=== PATIENT | female | born 1995 | race Caucasian/White ===

== ENCOUNTER 2019-07-07 19:32 | Emergency (ER) | payer BC ==
[~2019-07-07] VITALS: Ht 177.8 cm; Wt 86.0 kg
[2019-07-07 20:14] LABS: BASOPHILS # (AUTO) 0.1 X10'3 (0-0.2); BASOPHILS % (AUTO) 0.6 % (0-1); EOSINOPHILS # (AUTO) 0.1 X10'3 (0-0.9); EOSINOPHILS % (AUTO) 1.1 % (0-6); HEMATOCRIT 36.6 % (35.0-45.0); HEMOGLOBIN 12.9 g/dl (12.0-16.0); LYMPHOCYTES # (AUTO) 1.7 X10'3 (1.1-4.8); LYMPHOCYTES % (AUTO) 20.8 % (21-51); MEAN CORPUSCULAR HEMOGLOBIN 30.5 PG (27.0-31.0); MEAN CORPUSCULAR HGB CONC 35.1 g/dL (33.0-36.5); MEAN CORPUSCULAR VOLUME 86.8 FL (78-98); MEAN PLATELET VOLUME 7.9 FL (7.4-10.4); MONOCYTES # (AUTO) 0.6 X10'3 (0-0.9); MONOCYTES % (AUTO) 7.8 % (2-12); NEUTROPHILS # (AUTO) 5.7 X10'3 (1.8-7.7); NEUTROPHILS % (AUTO) 69.7 % (42-75); PLATELET COUNT 257 X10'3 (140-440); RED BLOOD COUNT 4.22 X10'6 (4.20-5.60); RED CELL DISTRIBUTION WIDTH 12.1 % (11.5-14.5); WHITE BLOOD COUNT 8.2 X10'3 (4.5-11.0)
[2019-07-07 20:29] LABS: ALANINE AMINOTRANSFERASE 88 U/L (12-78); ALBUMIN/GLOBULIN RATIO 1.2 (1.1-1.5); ALKALINE PHOSPHATASE 63 IU/L (46-116); ANION GAP 9 (8-16); ASPARTATE AMINO TRANSFERASE 27 U/L (10-37); BILIRUBIN,TOTAL 0.1 MG/DL (0.1-1.0); BLOOD UREA NITROGEN 16 MG/DL (7-18); CALCIUM 9.2 MG/DL (8.5-10.1); CHLORIDE 106 MMOL/L (99-107); CREATININE 0.84 MG/DL (0.40-0.90); GLUCOSE 156 MG/DL (70-104); POTASSIUM 3.4 MMOL/L (3.5-5.1); SODIUM 139 MMOL/L (135-145); TOTAL CARBON DIOXIDE 24.1 MMOL/L (24-32); TOTAL PROTEIN 7.3 G/DL (6.4-8.2); eGFR 82 ML/MIN
[2019-07-07 20:50] LABS: URINE HCG NEGATIVE (NEG)
[2019-07-07 20:51] LABS: CLARITY,URINE CLEAR (Clear); COLOR,URINE YELLOW (Yellow); GLUCOSE, URINE NEGATIVE (Neg); KETONES,URINE NEGATIVE (Neg); LEUKOCYTE ESTERASE ,URINE NEGATIVE (Neg); NITRITES, URINE NEGATIVE (Neg); OCCULT BLOOD,URINE TRACE-INTACT (Neg); PH,URINE 5.5 (4.8-8.0); PROTEIN,URINE NEGATIVE (Neg); UROBILINOGEN,URINE 0.2 E.U/dL (0.2-1.0)
[2019-07-07 20:56] LABS: UA COLLECTION TYPE CLN CATCH MIDSTREAM
[2019-07-07 20:57] LABS: BACTERIA,URINE NONE SEEN /HPF (Neg); RBC,URINE 0-2 /HPF (0-2); SQUAMOUS EPITHELIAL CELL,UR FEW /LPF (FEW); WBC,URINE NONE SEEN /HPF (0-4)
[2019-07-07] MEDS ORDERED: potassium Cl 20 mEq SR tablet PO ONE (21:00)
[2019-07-07] MEDS ORDERED: normal saline 1000ML IV soln IVB ONE (21:00)
[2019-07-07 21:01] LABS: URINE AMPHETAMINE SCREEN NEGATIVE (Neg); URINE BARBITUATE SCREEN NEGATIVE (Neg); URINE BENZODIAZEPINES SCREEN NEGATIVE (Neg); URINE CANNABINOID SCREEN NEGATIVE (Neg); URINE COCAINE SCREEN NEGATIVE (Neg); URINE METHADONE SCREEN NEGATIVE (Neg); URINE OPIATE SCREEN NEGATIVE (Neg); URINE PHENCYCLIDINE SCREEN NEGATIVE (Neg)
[2019-07-07 21:10] LABS: MAGNESIUM 1.6 MG/DL (1.5-2.4)
[2019-07-07 21:24] LABS: ETHANOL < 0.010 GM/DL (0.0-0.010)
[2019-07-07] MEDS ORDERED: magnesium oxide 400mg tablet PO ONE (22:00)
[2019-07-07] MEDS ORDERED: metoprolol tartrate 50mg tablet PO ONE (22:10)
[2019-07-07] MEDS ORDERED: METO25TA6 PO (22:10)
[2019-07-08 00:36] VITALS: BP 117/80
== END 2019-07-07 23:52 | disposition home or self-care (01) ==
LOC: ER 19:33
DX: R00.0 Tachycardia, unspecified (principal); R07.89 Other chest pain; Z88.2 Allergy status to sulfonamides
CPT/HCPCS: 36415; 71045; 80053; 80305; 80320; 81001; 81025; 83735; 84443; 84484; 85025; 93005; 99284; J7030

== ENCOUNTER 2019-08-04 19:31 | Emergency (ER) | payer BC ==
[~2019-08-04] VITALS: Ht 177.8 cm; Wt 84.1 kg
[~2019-08-04 19:31] MED LIST: METO25TA6 PO
[2019-08-04] MEDS ORDERED: normal saline 1000ML IV soln IVB ONE ×2 (20:05→21:05)
[2019-08-04] MEDS ORDERED: metoprolol tartrate 1mg/ml inj IV ONE (20:05)
[2019-08-04] MEDS ORDERED: LORazepam 1 MG tablet PO ONE (20:05)
--- NOTE | 2019-08-04 20:16 | NUR ---
PAUL states pts HR 106 and that she doesn't need the metropolol right now so the med was returned to the [facility].
[2019-08-04 20:33] LABS: BASOPHILS % (AUTO) 0.3 % (0-1); EOSINOPHILS % (AUTO) 0.2 % (0-6); HEMATOCRIT 36.2 % (35.0-45.0); HEMOGLOBIN 12.6 g/dl (12.0-16.0); LYMPHOCYTES # (AUTO) 0.9 X10'3 (1.1-4.8); LYMPHOCYTES % (AUTO) 8.7 % (21-51); MEAN CORPUSCULAR HEMOGLOBIN 29.8 PG (27.0-31.0); MEAN CORPUSCULAR HGB CONC 34.9 g/dL (33.0-36.5); MEAN CORPUSCULAR VOLUME 85.5 FL (78-98); MEAN PLATELET VOLUME 8.1 FL (7.4-10.4); MONOCYTES # (AUTO) 0.8 X10'3 (0-0.9); MONOCYTES % (AUTO) 7.6 % (2-12); NEUTROPHILS # (AUTO) 8.3 X10'3 (1.8-7.7); NEUTROPHILS % (AUTO) 83.2 % (42-75); PLATELET COUNT 256 X10'3 (140-440); RED BLOOD COUNT 4.23 X10'6 (4.20-5.60); RED CELL DISTRIBUTION WIDTH 12.4 % (11.5-14.5)
--- NOTE | 2019-08-04 20:52 | NUR ---
pt up to the br
[2019-08-04 21:11] LABS: ALANINE AMINOTRANSFERASE 32 U/L (12-78); ALBUMIN 4.1 G/DL (3.4-5.0); ALBUMIN/GLOBULIN RATIO 1.1 (1.1-1.5); ALKALINE PHOSPHATASE 55 IU/L (46-116); ANION GAP 11 (8-16); ASPARTATE AMINO TRANSFERASE 19 U/L (10-37); BILIRUBIN,TOTAL 0.4 MG/DL (0.1-1.0); BLOOD UREA NITROGEN 8 MG/DL (7-18); BUN/CREATININE RATIO 9.4 (6.6-38.0); CALCIUM 9.2 MG/DL (8.5-10.1); CHLORIDE 105 MMOL/L (99-107); CREATININE 0.85 MG/DL (0.40-0.90); GLUCOSE 131 MG/DL (70-104); POTASSIUM 3.2 MMOL/L (3.5-5.1); SODIUM 138 MMOL/L (135-145); TOTAL CARBON DIOXIDE 22.5 MMOL/L (24-32); TOTAL PROTEIN 7.7 G/DL (6.4-8.2); eGFR 81 ML/MIN
[2019-08-04] MEDS ORDERED: potassium Cl 20 mEq SR tablet PO STA (21:16)
[2019-08-04 22:24] VITALS: BP 150/95
[2019-08-04 22:32] LABS: MAGNESIUM 1.6 MG/DL (1.5-2.4)
== END 2019-08-04 22:25 | disposition home or self-care (01) ==
LOC: ER 19:32
DX: R00.0 Tachycardia, unspecified (principal); R06.02 Shortness of breath; Z79.899 Other long term (current) drug therapy
CPT/HCPCS: 36415; 71045; 80053; 83735; 84484; 85025; 85610; 93005; 99285; J7030

== ENCOUNTER 2019-11-06 07:42 | Outpatient (CLI) | payer BC ==
[2019-11-06] VITALS (18 sets, daily range): BP systolic 120–146; BP diastolic 77–103
== END 2019-11-06 23:59 | disposition home or self-care (01) ==
LOC: CARD DIAG 07:42
PROVIDERS: ATTEND Internal Medicine Interventional Cardiology
DX: I47.9 Paroxysmal tachycardia, unspecified (principal); R42 Dizziness and giddiness; R55 Syncope and collapse
CPT/HCPCS: 93660

== ENCOUNTER 2021-01-23 13:59 | Emergency (ER) | payer BC ==
[~2021-01-23] VITALS: Ht 177.8 cm; Wt 79.5 kg
[~2021-01-23 13:59] MED LIST changes: +LOP25T PO; -METO25TA6 PO
--- NOTE | 2021-01-23 15:14 | NUR ---
DOT COMPLIANCE COORDINATOR ABBY AND OHLFS AWARE OF PTS INCREASE IN CP, SOB, AND HR OF 143. PT ON CARDIAC AND SPO2 MONITOR IN LOBBY. PT IS BEING MONITORED BY EMT IN LOBBY.
[2021-01-23] MEDS ORDERED: normal saline 1000ML IV soln IVB ONE (18:45)
[2021-01-23] MEDS ORDERED: LORazepam 2 mg/ml vial IV ONE (18:45)
[2021-01-23 19:06] LABS: BASOPHILS % (AUTO) 0.4 % (0-1); EOSINOPHILS % (AUTO) 0 % (0-6); HEMATOCRIT 39.1 % (35.0-45.0); HEMOGLOBIN 13.6 g/dl (12.0-16.0); LYMPHOCYTES # (AUTO) 1.2 X10'3 (1.1-4.8); LYMPHOCYTES % (AUTO) 15.7 % (21-51); MEAN CORPUSCULAR HEMOGLOBIN 30.6 PG (27.0-31.0); MEAN CORPUSCULAR HGB CONC 34.8 g/dL (33.0-36.5); MEAN PLATELET VOLUME 8.1 FL (7.4-10.4); MONOCYTES # (AUTO) 0.4 X10'3 (0-0.9); MONOCYTES % (AUTO) 5.8 % (2-12); NEUTROPHILS # (AUTO) 5.9 X10'3 (1.8-7.7); NEUTROPHILS % (AUTO) 78.1 % (42-75); PLATELET COUNT 256 X10'3 (140-440); RED BLOOD COUNT 4.44 X10'6 (4.20-5.60); RED CELL DISTRIBUTION WIDTH 11.9 % (11.5-14.5); WHITE BLOOD COUNT 7.5 X10'3 (4.5-11.0)
[2021-01-23 19:17] LABS: ALANINE AMINOTRANSFERASE 33 U/L (12-78); ALBUMIN 4.4 G/DL (3.4-5.0); ALBUMIN/GLOBULIN RATIO 1.3 (1.1-1.5); ALKALINE PHOSPHATASE 57 IU/L (46-116); ANION GAP 12 (8-16); ASPARTATE AMINO TRANSFERASE 14 U/L (10-37); BILIRUBIN,TOTAL 0.7 MG/DL (0.1-1.0); BLOOD UREA NITROGEN 10 MG/DL (7-18); BUN/CREATININE RATIO 11.6 (6.6-38.0); CALCIUM 8.8 MG/DL (8.5-10.1); CHLORIDE 108 MMOL/L (99-107); CREATININE 0.86 MG/DL (0.40-0.90); GLUCOSE 99 MG/DL (70-104); POTASSIUM 3.8 MMOL/L (3.5-5.1); SODIUM 143 MMOL/L (135-145); TOTAL CARBON DIOXIDE 22.7 MMOL/L (24-32); TOTAL PROTEIN 7.8 G/DL (6.4-8.2); eGFR 79 ML/MIN
[2021-01-23 19:34] LABS: D-DIMER < 0.19 MG/L FEU (0-0.50)
[2021-01-23 20:07] VITALS: BP 138/89
== END 2021-01-23 20:10 | disposition home or self-care (01) ==
LOC: ER 13:59
DX: R00.0 Tachycardia, unspecified (principal); Z88.2 Allergy status to sulfonamides; Z79.899 Other long term (current) drug therapy
CPT/HCPCS: 36415; 71045; 80053; 83880; 84484; 85025; 85379; 93005; 96361; 96374; 99285; J2060; J7030